=== PATIENT | female | born 1990 | race Caucasian/White ===

== ENCOUNTER → 2017-10-15 | Outpatient (CLI) | payer OTHER ==
[~2017-10-15] MED LIST: BENADRYL25 MG PO; CELEXA40 MG; NAPROSYN500 MG PO; NOHOMEMEDICATIONS; PREDNISONE 20 M20 MG PO; TRAZODONE HCL50 MG PO; ZOLOFT100 MG PO
== END ==
LOC: M.RAD 14:31
DX: M79.671 Pain in right foot (principal); M25.571 Pain in right ankle and joints of right foot; R60.9 Edema, unspecified